=== PATIENT | female | born 1990 | race Caucasian/White ===

== ENCOUNTER 2020-12-04 13:59 | Emergency (ER) | payer SELFPAY ==
[~2020-12-04] VITALS: Ht 167.6 cm; Wt 55.0 kg
[2020-12-04] MEDS ORDERED: SODIUM CHLORIDE 0.9% 1,000 ML IV ONE (14:30)
[2020-12-04] MEDS ORDERED: LORAZEPAM 2MG/ML CPJ IV PRN (14:30)
[2020-12-04 15:07] VITALS: BP 113/79
== END 2020-12-04 15:23 | disposition left against medical advice (07) ==
LOC: ER 13:59
DX: R56.9 Unspecified convulsions (principal); R53.1 Weakness
CPT/HCPCS: 93005; 99283; J7030